=== PATIENT | male | born 1975 | race Caucasian/White ===

== ENCOUNTER 2018-01-29 15:04 | Emergency (ER) | payer SELFPAY ==
[2018-01-29 15:20] VITALS: RESP 18; TEMP 97.9
[2018-01-29] MEDS ORDERED: chlordiazePOXIDE 25 MG CAP PO ONE (15:47)
[2018-01-29] MEDS ORDERED: CHLORDIAZEPOXIDE 25MG PREPK#6 BTL TAKEHOME ONE (16:40)
--- NOTE | 2018-01-29 16:40 | EDPHY ---
H & P Stated Complaint: heroin/meth withdrawl, wants medical detox Time Seen by Provider: 01/29/18 15:43 HPI/ROS: CHIEF COMPLAINT: Requesting detox HISTORY OF PRESENT ILLNESS: The patient presents to the ED requesting medical detox for heroin withdrawal. The patient reports he is using approximately 0.5 gm of heroin on a daily basis. The patient is developing symptoms of nausea and mild agitation. He denies loose in a ríos or vomiting. The patient denies any suicidal or homicidal ideation. The patient denies significant past medical history. He has no additional complaints. REVIEW OF SYSTEMS: A comprehensive 10 point review of systems is otherwise negative aside from elements mentioned in the history of present illness. Source: Patient Exam Limitations: No limitations - Personal History Current Tetanus Diphtheria and Acellular Pertussis (TDAP): Yes - Medical/Surgical History Hx Asthma: No Hx Chronic Respiratory Disease: No Hx Diabetes: No Hx Cardiac Disease: No Hx Renal Disease: No Hx Cirrhosis: No Hx Alcoholism: Yes Hx HIV/AIDS: No Hx Splenectomy or Spleen Trauma: No Other PMH: drug and etoh abuse, t1- c6 fracture/fusion and hardware removal. MRSA 2010, anxiety, depression. - Social History Smoking Status: Current every day smoker - Physical Exam Exam: General Appearance: Alert, no distress Eyes: Pupils equal and round no pallor or injection ENT, Mouth: Mucous membranes moist Respiratory: There are no retractions, lungs are clear to auscultation Cardiovascular: Regular rate and rhythm Gastrointestinal: Abdomen is soft and nontender, no masses, bowel sounds normal Neurological: A&O, normal motor function, normal sensory exam, normal cranial nerves Skin: Warm and dry, no rashes Musculoskeletal: Neck is supple nontender Extremities: symmetrical, full range of motion Constitutional: Initial Vital Signs Temperature (C) 36.6 C 01/29/18 15:17 Heart Rate 98 01/29/18 15:17 Respiratory Rate 18 01/29/18 15:17 Blood Pressure 127/101 H 01/29/18 15:17 O2 Sat (%) 97 01/29/18 15:17 O2 Delivery Mode Room Air Allergies/Adverse Reactions: No Known Allergies Allergy (Unverified 01/29/18 15:20) Home Medications: Medication Instructions Recorded NK [No Known Home Meds] 01/29/18 Medical Decision Making ED Course/Re-evaluation: The patient was given a 25 mg dose of Librium. We have consulted with the local detox center in the patient would be eligible for treatment at their facility. [facility] with a Librium prepack. Differential Diagnosis: Differential diagnosis considered includes narcotic withdrawal, dehydration, hemodynamic instability - Data Points Medications Given: Discontinued Medications Chlordiazepoxide HCl (Librium) 25 mg PO EDNOW ONE Stop: 01/29/18 15:48 Last Admin: 01/29/18 16:02 Dose: 25 mg Departure - Departure Disposition: Home, Routine, Self-Care Clinical Impression: Narcotic withdrawal Condition: Good Instructions: Opioid Withdrawal (ED) Additional Instructions: 1. Please go to the [facility] as they are willing to offer you medical treatment for your withdrawal symptoms. Referrals: [facility] [Outside] - As per Instructions
[2018-01-29 16:53] VITALS: BP 122/77; PULSE 91; O2SAT 98
== END 2018-01-29 16:53 | disposition home or self-care (01) ==
DX: F11.23 Opioid dependence with withdrawal (principal); F17.200 Nicotine dependence, unspecified, uncomplicated

== ENCOUNTER 2018-01-30 00:21 | Emergency (ER) | payer SELFPAY ==
[2018-01-30 00:26] VITALS: RESP 18
--- NOTE | 2018-01-30 00:33 | EDPHY ---
H & P Stated Complaint: WETH, ETOH AND HEROIN W/D SENT FRM THE [facility] Time Seen by Provider: 01/30/18 00:25 HPI/ROS: HPI CHIEF COMPLAINT: Polysubstance abuse, withdrawal, sent from the [facility]. HISTORY OF PRESENT ILLNESS: This patient is a 42-year-old male, history of polysubstance abuse, he typically does IV heroin and IV methamphetamine however recently he has been drinking alcohol, additionally states few days ago he did some benzos. He presents back to the emergency room from the [facility], as he could not stay at the [facility] due to use of benzo's and possible benzo withdraw. Patient presents emergency very tearful and anxious. He states that he feels like he is anxious and going to withdrawal. His vital signs are noted to be stable. He is not shaking. He is homeless. Past Medical History: Polysubstance abuse, homelessness history of methamphetamine abuse, heroin abuse and alcohol and recent benzos. Past Surgical History: Denies recent surgery but does have a history of cervical fusion. Social History: Endorses daily use of multiple substances including heroin, methamphetamine, alcohol and benzos. Homeless. Family History: Noncontributory ROS REVIEW OF SYSTEMS: A comprehensive 10 point review of systems is otherwise negative aside from elements mentioned in the history of present illness. Exam Constitutional anxious, tearful, triage nursing summary reviewed, vital signs reviewed, awake/alert. Not tremulous, vital signs stable. Eyes normal conjunctivae and sclera, EOMI, PERRLA. HENT normal inspection, atraumatic, moist mucus membranes, no epistaxis, neck supple/ no meningismus, no raccoon eyes. Respiratory clear to auscultation bilaterally, normal breath sounds, no respiratory distress, no wheezing. Cardiovascular rate normal, regular rhythm, no murmur, no edema, distal pulses normal. Gastrointestinal soft, non-tender, no rebound, no guarding, normal bowel sounds, no distension, no pulsatile mass. Genitourinary no CVA tenderness. Musculoskeletal no midline vertebral tenderness, full range of motion, no calf swelling, no tenderness of extremities, no meningismus, good pulses, neurovascularly intact. Skin pink, warm, & dry, no rash, skin atraumatic. Neurologic awake, alert and oriented x 3, AAOx3, moves all 4 extremities equally, motor intact, sensory intact, CN II-XII intact, normal cerebellar, normal vision, normal speech. Psychiatric anxious and tearful Heme/Lymph/Immune no lymphadenopathy. Differential Diagnosis: Includes but is not limited to in a particular order polysubstance abuse, alcohol draw, benzo withdrawal, methamphetamine abuse, heroin withdrawal Medical Decision Making: Plan for this patient IV establishment with fluid bolus, IV Benadryl 50 mg for anxiety, IV Ativan for anxiety, check basic electrolytes and re-evaluate. Re-evaluation: [id number]: Patient has been sleeping here in the emergency room in no acute distress. Vital signs are stable. No evidence of withdrawal. The patient is requesting Zofran and clonidine. Will give clonidine 1st dose emergency for appear draw. Zofran take-home pack. Return precautions discussed with him. Vital signs are stable he is not tachycardic is not hypertensive he is not vomiting is resting comfortably and slept for the past 5 hr in the emergency room. I feel comfortable discharging. Source: Patient - Personal History Current Tetanus/Diphtheria Vaccine: Yes Current Tetanus Diphtheria and Acellular Pertussis (TDAP): Yes - Medical/Surgical History Hx Asthma: No Hx Chronic Respiratory Disease: No Hx Diabetes: No Hx Cardiac Disease: No Hx Renal Disease: No Hx Cirrhosis: No Hx Alcoholism: Yes Hx HIV/AIDS: No Hx Splenectomy or Spleen Trauma: No Other PMH: drug and etoh abuse, t1- c6 fracture/fusion and hardware removal. MRSA 2010, anxiety, depression. - Social History Smoking Status: Current every day smoker Constitutional: Initial Vital Signs Temperature (C) 36.8 C 01/30/18 00:24 Heart Rate 105 H 01/30/18 00:24 Respiratory Rate 18 01/30/18 00:24 Blood Pressure 120/85 H 01/30/18 00:24 O2 Sat (%) 95 01/30/18 00:24 O2 Delivery Mode Room Air Allergies/Adverse Reactions: No Known Allergies Allergy (Unverified 01/30/18 00:26) Home Medications: Medication Instructions Recorded NK [No Known Home Meds] 01/29/18 Medical Decision Making - Data Points Laboratory Results: Laboratory Results 01/30/18 00:50 01/30/18 00:50 01/30/18 01/30/18 00:50 00:50 WBC 8.49 10^3/uL 10^3/uL (3.80-9.50) RBC 4.94 10^6/uL 10^6/uL (4.40-6.38) Hgb 15.9 g/dL g/dL (13.7-17.5) Hct 46.2 % % (40.0-51.0) MCV 93.5 fL fL (81.5-99.8) MCH 32.2 pg pg (27.9-34.1) MCHC 34.4 g/dL g/dL (32.4-36.7) RDW 13.5 % % (11.5-15.2) Plt Count 323 10^3/uL 10^3/uL (150-400) MPV 9.6 fL fL (8.7-11.7) Neut % (Auto) 51.0 % % (39.3-74.2) Lymph % (Auto) 35.2 % % (15.0-45.0) [place] % (Auto) 9.3 % % (4.5-13.0) Eos % (Auto) 1.9 % % (0.6-7.6) Baso % (Auto) 1.3 % % (0.3-1.7) Nucleat RBC Rel Count 0.0 % % (0.0-0.2) Absolute Neuts (auto) 4.33 10^3/uL 10^3/uL (1.70-6.50) Absolute Lymphs (auto) 2.99 10^3/uL 10^3/uL (1.00-3.00) Absolute Monos (auto) 0.79 10^3/uL 10^3/uL (0.30-0.80) Absolute Eos (auto) 0.16 10^3/uL 10^3/uL (0.03-0.40) Absolute Basos (auto) 0.11 10^3/uL H 10^3/uL (0.02-0.10) Absolute Nucleated RBC 0.00 10^3/uL 10^3/uL (0-0.01) Immature Gran % 1.3 % H % (0.0-1.1) Immature Gran # 0.11 10^3/uL H 10^3/uL (0.00-0.10) Sodium 142 mEq/L mEq/L (135-145) Potassium 4.2 mEq/L mEq/L (3.5-5.2) Chloride 107 mEq/L mEq/L (97-110) Carbon Dioxide 24 mEq/l mEq/l (22-31) Anion Gap 11 mEq/L mEq/L (8-16) BUN 8 mg/dL mg/dL (7-23) Creatinine 0.9 mg/dL mg/dL (0.7-1.3) Estimated GFR > 60 Glucose 85 mg/dL mg/dL (70-100) Calcium 9.5 mg/dL mg/dL (8.5-10.4) Medications Given: Discontinued Medications Diphenhydramine HCl (Benadryl Injection) 50 mg IVP EDNOW ONE Stop: 01/30/18 00:38 Last Admin: 01/30/18 00:48 Dose: 50 mg Sodium Chloride (Ns) 1,000 mls @ 0 mls/hr IV EDNOW ONE; Wide Open PRN Reason: Protocol Stop: 01/30/18 00:37 Last Admin: 01/30/18 00:48 Dose: 1,000 mls Lorazepam (Ativan Injection) 1 mg IVP EDNOW ONE Stop: 01/30/18 00:38 Last Admin: 01/30/18 00:48 Dose: 1 mg Departure - Departure Disposition: Home, Routine, Self-Care Clinical Impression: Alcohol dependence Qualifiers: Substance use status: uncomplicated Qualified Code(s): F10.20 - Alcohol dependence, uncomplicated Condition: Good Instructions: Acute Nausea and Vomiting (ED), Opioid Withdrawal (ED), Alcohol Withdrawal (ED) Referrals: NONE *PRIMARY CARE P,. [Primary Care Provider] - As per Instructions
[2018-01-30] MEDS ORDERED: NS 1,000 ML IV ONE (00:36)
[2018-01-30] MEDS ORDERED: LORazepam 2 MG/ML INJ IVP ONE (00:37)
[2018-01-30 01:01] LABS: PLATELET COUNT 323 10^3/uL (150-400)
[2018-01-30 02:19] VITALS: TEMP 97.9
[2018-01-30] MEDS ORDERED: ONDANSETRON 4MG PREPACK#2 BTL TAKEHOME ONE (06:04)
[2018-01-30] MEDS ORDERED: ONDANSETRON DISINTEGRATING 4 MG TAB PO ONE (06:04)
[2018-01-30 07:23] VITALS: BP 117/79; PULSE 80; O2SAT 95
== END 2018-01-30 07:32 | disposition home or self-care (01) ==
DX: F10.20 Alcohol dependence, uncomplicated (principal); F17.200 Nicotine dependence, unspecified, uncomplicated; E86.9 Volume depletion, unspecified
CPT/HCPCS: 96374; J1200; J2060

== ENCOUNTER 2018-02-09 05:09 | Emergency (ER) | payer SELFPAY ==
[2018-02-09 05:20] VITALS: RESP 16; TEMP 98.4
[2018-02-09] MEDS ORDERED: NS 1,000 ML IV ONE (05:20)
[2018-02-09] MEDS ORDERED: FAMOTIDINE 20 MG/NACL 50 ML IV ONE (05:20)
--- NOTE | 2018-02-09 05:46 | EDPHY ---
H & P Stated Complaint: Emesis Time Seen by Provider: 02/09/18 05:18 HPI/ROS: HPI The patient presents brought in by ambulance for nausea, vomiting for the last several hr. At about 6:00 p.m. Last night when [facility] he was feeling nauseated and began to have several episodes of watery diarrhea. Then at about 2:00 a.m. He developed nausea and vomiting. This is been constant, is moderate in severity and not associated with any abdominal pain or fever. He denies any sick contacts. He did eat many different foods from the grocery store yesterday. He was in the emergency department several days ago for withdrawal symptoms from heroin and methamphetamine.. REVIEW OF SYSTEMS Constitutional: No fever, no chills. Eyes: No discharge. ENT: No sore throat. Cardiovascular: No chest pain, no palpitations. Respiratory: No cough, no shortness of breath. Gastrointestinal: No abdominal pain, no vomiting. Genitourinary: No hematuria. Musculoskeletal: No back pain. Skin: No rashes. Neurological: No headache. PMHx: History of spinal fusion, anxiety and depression Soc Hx: Polysubstance abuse, history of heroin, methamphetamine, alcohol, benzodiazepine abuse PHYSICAL General Appearance: Alert, no distress Eyes: Pupils equal and round no pallor or injection ENT, Mouth: Mucous membranes moist Respiratory: There are no retractions, lungs are clear to auscultation Cardiovascular: Regular rate and rhythm Gastrointestinal: Abdomen is soft and non-tender, no masses, bowel sounds normal Neurological: A&O, moves all extremities Skin: Warm and dry, no rashes Musculoskeletal: Neck is supple non tender Extremities: symmetrical, full range of motion Psychiatric: Patient is oriented X 3, there is no agitation Source: Patient, EMS Exam Limitations: No limitations - Personal History Current Tetanus/Diphtheria Vaccine: Unsure Current Tetanus Diphtheria and Acellular Pertussis (TDAP): Unsure - Medical/Surgical History Hx Asthma: No Hx Chronic Respiratory Disease: No Hx Diabetes: No Hx Cardiac Disease: No Hx Renal Disease: No Hx Cirrhosis: No Hx Alcoholism: Yes Hx HIV/AIDS: No Hx Splenectomy or Spleen Trauma: No Other PMH: drug and etoh abuse, t1- c6 fracture/fusion and hardware removal. MRSA 2010, anxiety, depression. - Social History Smoking Status: Current every day smoker Constitutional: Initial Vital Signs Temperature (C) 36.9 C 02/09/18 05:09 Heart Rate 83 02/09/18 05:09 Respiratory Rate 16 02/09/18 05:09 Blood Pressure 120/83 H 02/09/18 05:09 O2 Sat (%) 92 02/09/18 05:09 O2 Delivery Mode Room Air Allergies/Adverse Reactions: No Known Allergies Allergy (Verified 02/09/18 05:20) Home Medications: Medication Instructions Recorded NK [No Known Home Meds] 01/29/18 Medical Decision Making Differential Diagnosis: This is a 43-year-old male brought in by ambulance from the [facility] with nausea and vomiting as well as diarrhea earlier in the day. On exam, he has normal vital signs, he is generally well-appearing with a benign abdominal exam. Differential shoulder diagnosis includes viral gastroenteritis, toxin mediated enterocolitis, less likely appendicitis. In the emergency department, patient had IV line established and was given normal saline, Zofran and famotidine with improvement in his symptoms. Labs were checked and were unremarkable. He was able to tolerate fluids By mouth and was discharged home. - Data Points Laboratory Results: Laboratory Results 02/09/18 05:20 02/09/18 05:20 02/09/18 02/09/18 05:20 05:20 WBC TNP RBC TNP Hgb TNP Hct TNP MCV TNP MCH TNP MCHC TNP RDW TNP Plt Count TNP MPV TNP Neut % (Auto) TNP Lymph % (Auto) TNP [place] % (Auto) TNP Eos % (Auto) TNP Baso % (Auto) TNP Nucleat RBC Rel Count TNP Absolute Neuts (auto) TNP Absolute Lymphs (auto) TNP Absolute Monos (auto) TNP Absolute Eos (auto) TNP Absolute Basos (auto) TNP Absolute Nucleated RBC TNP Immature Gran % TNP Immature Gran # TNP Sodium 143 mEq/L mEq/L (135-145) Potassium 4.5 mEq/L mEq/L (3.5-5.2) Chloride 106 mEq/L mEq/L (97-110) Carbon Dioxide 24 mEq/l mEq/l (22-31) Anion Gap 13 mEq/L mEq/L (8-16) BUN 11 mg/dL mg/dL (7-23) Creatinine 0.7 mg/dL mg/dL (0.7-1.3) Estimated GFR > 60 Glucose 109 mg/dL H mg/dL (70-100) Calcium 9.2 mg/dL mg/dL (8.5-10.4) Total Bilirubin 0.8 mg/dL mg/dL (0.1-1.4) AST 27 IU/L IU/L (17-59) ALT 38 IU/L IU/L (21-72) Alkaline Phosphatase 87 IU/L IU/L (38-126) Total Protein 7.5 g/dL g/dL (6.3-8.2) Albumin 3.8 g/dL g/dL (3.5-5.0) Lipase 76 IU/L IU/L (23-300) Medications Given: Discontinued Medications Sodium Chloride (Ns) 1,000 mls @ 0 mls/hr IV EDNOW ONE; Wide Open PRN Reason: Protocol Stop: 02/09/18 05:21 Last Admin: 02/09/18 05:26 Dose: 1,000 mls Famotidine/Sodium Chloride (Pepcid 20 Mg (Premix)) 50 mls @ 200 mls/hr IV EDNOW ONE Stop: 02/09/18 05:34 Last Admin: 02/09/18 05:27 Dose: 50 mls Departure - Departure Disposition: Home, Routine, Self-Care Clinical Impression: Nausea vomiting and diarrhea Condition: Good Instructions: Acute Nausea and Vomiting (ED) Additional Instructions: Please return to the emergency department if you are worse in any way. Referrals: [facility],. [Clinic] - As per Instructions
[2018-02-09 06:13] VITALS: BP 112/63; PULSE 72; O2SAT 97
[2018-02-09] MEDS ORDERED: ONDANSETRON 4MG PREPACK#2 BTL TAKEHOME ONE (06:18)
[2018-02-09 06:20] LABS: PLATELET COUNT 329 10^3/uL (150-400)
== END 2018-02-09 06:55 | disposition home or self-care (01) ==
LOC: EDUNIT#
DX: R11.2 Nausea with vomiting, unspecified (principal); R19.7 Diarrhea, unspecified; E86.9 Volume depletion, unspecified; F17.200 Nicotine dependence, unspecified, uncomplicated
CPT/HCPCS: 96374

== ENCOUNTER 2018-09-27 01:51 | Emergency (ER) | payer MEDICAID ==
[2018-09-27 01:59] VITALS: BP 109/67
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
[2018-09-27] MEDS ORDERED: IBUPROFEN 600 MG TAB PO ONE (02:21)
== END 2018-09-27 02:51 ==
DX: S20.212A Contusion of left front wall of thorax, initial encounter (principal); V18.0XXA Pedal cycle driver injured in noncollision transport accident in nontraffic accident, initial encounter; F17.200 Nicotine dependence, unspecified, uncomplicated